=== PATIENT | male | born 1965 | race Caucasian/White ===

== ENCOUNTER 2022-11-16 16:47 | Emergency (ER) | payer MEDICARE ==
--- NOTE | 2022-11-16 18:33 | XRAY Report ---
PROCEDURE: Elbow 3 View LT INDICATIONS: glf TECHNIQUE: 3 views of the elbow were acquired. COMPARISON: None FINDINGS: Bones: No fractures or dislocations. No suspicious bony lesions. Soft tissues: No elbow joint effusion. No suspicious soft tissue calcifications. IMPRESSION: No acute elbow fracture or dislocation. No significant joint effusion. Reviewed by: Juan Maldonado MD on 11/16/2022 6:[address] [facility] Approved by: Juan Maldonado MD on 11/16/2022 6:[address] [facility] Station ID: [id number]
--- NOTE | 2022-11-16 19:35 | CT Report ---
PROCEDURE: LUMBAR SPINE WO INDICATIONS: glf TECHNIQUE: Noncontrast 3 mm thick sections acquired from the T12 level to the sacrum. Sagittal and coronal refo rmats were constructed. For radiation dose reduction, the following was used: automated exposure co ntrol, adjustment of mA and/or kV according to patient size. COMPARISON: None. FINDINGS: Image quality: Excellent. Bones: There is normal bony alignment. No acute vertebral body compression fractures. No suspiciou s lytic or blastic bony lesions. Central spinal caliber is of normal overall caliber. No pars defec ts. T12-L1: Normal in appearance. L1-L2: Degenerative endplate changes are seen. Broad-based disc bulge and bilateral facet arthrosi s is noted with mild central canal stenosis and mild left-sided neural foraminal narrowing. L2-L3: Degenerative endplate changes are seen. Diffuse disc bulge and bilateral facet arthrosis is seen with mild central canal stenosis and moderate left-sided neural foraminal narrowing. L3-L4: Loss of disc height and degenerative endplate changes are seen. Broad-based disc bulge and b ilateral facet arthrosis is seen with mild to moderate central canal stenosis and moderate to severe bilateral neural foraminal narrowing. L4-L5: Degenerative endplate changes and loss of disc height is seen. Diffuse disc bulge and bilate ral facet arthrosis is noted with mild central canal stenosis and moderate bilateral neural foraminal narrowing. L5-S1: Loss of disc height and vacuum disc phenomenon is seen. Broad-based disc bulge and bilateral facet arthrosis is seen with mild central canal stenosis and moderate to severe bilateral neural for aminal narrowing. Soft tissues: No retroperitoneal masses or hematomas. Visualized aorta is normal in caliber. IMPRESSION: 1. No acute lumbar spine fracture or dislocation. 2. Degenerative disc disease throughout lumbar spine as described above. Reviewed by: Juan Maldonado MD on 11/16/2022 7:34 PM PST Approved by: Juan Maldonado MD on 11/16/2022 7:34 PM PST Station ID: [id number]
[2022-11-16] MEDS ORDERED: KETOROLAC 60 MG/2 ML VIAL IM STA (20:04)
--- NOTE | 2022-11-16 20:06 | ED Physician Documentation ---
History of Present Illness - Stated complaint Stated Complaint: GLF, LANDED ON BACK & LT SIDE - Chief complaint Chief Complaint: Trauma Ch/Bk - Additonal information Additional information: 56-year-old male presents to the emergency department for evaluation of left elbow and low back pain after slipping on ice today. He reports that he landed on his left side. Since then he has had shooting pain down his right leg consistent with what he believes to be sciatica. Has had no saddle anesthesia or loss of bowel or bladder function though he did report some urinary and defecation urgency just after the fall. He is ambulatory though he appears uncomfortable. Review of Systems Constitutional: reports: Reviewed and negative Throat: reports: Reviewed and negative Cardiac: reports: Reviewed and negative Respiratory: reports: Reviewed and negative : reports: Reviewed and negative Musculoskeletal: reports: Back pain, Extremity pain PD PAST MEDICAL HISTORY - Allergies Allergies/Adverse Reactions: Allergies Allergy/AdvReac Type Severity Reaction Status Date / Time No Known Drug Allergies Allergy Verified 11/16/22 17:17 PD ED PE NORMAL - General General: Alert and oriented X 3, No acute distress, Well developed/nourished - HEENT HEENT: Atraumatic, Moist mucous membranes - Neck Neck: Supple, no meningeal sign - Cardiac Cardiac: RRR, No murmur - Respiratory Respiratory: No respiratory distress - Abdomen Abdomen: Normal bowel sounds, Soft - Rectal Rectal: Other (Normal rectal tone and wink) - Back Back: No CVA TTP, No spinal TTP (No tenderness elicited with palpation of the cervical thoracic or lumbar spinous processes. No step-off or crepitus.), Other (Normal gait. Positive straight leg exam right. Motor strength 5 of 5 bilateral lower extremities.) - Derm Derm: Normal color, Warm and dry, No rash, Other (No abrasion or ecchymosis on the chest abdomen or thorax) - Extremities Extremities: No deformity, Normal ROM s pain. No: No tenderness to palpate (Mil d tenderness just proximal to the left elbow with ecchymosis. Normal flexion extension at the elbow without tenderness elicited at the olecranon. Normal pronation and supination. Distal grasp normal) - Neuro Neuro: Alert and oriented X 3, pigment pumper 2-12 intact Eye Opening: Spontaneous Motor: Obeys Commands Verbal: Oriented GCS Score: 15 Results - Vitals Vitals: Vital Signs - 24 hr 12/22/22 17:12 Temperature 36.7 C Heart Rate 84 Respiratory 18 Rate Blood Pressure 147/90 H O2 Saturation 99 Oxygen O2 Source Room air - Rads (name of study) left elbow Radiology: Final report received (No fracture) lumbar CT Radiology: Final report received (No acute lumbar spine fracture or dislocation. Degenerative disc disease throughout the lumbar spine) PD Medical Decision Making - ED course Complexity details: reviewed results, re-evaluated patient, considered differential, d/w patient ED course: 56-year-old male presents emergency department for evaluation of acute left elbow pain as well as pain that radiates down his right leg after slipping and falling on ice. He felt that it could have been sciatica though he has never had it this severe. He had no saddle anesthesia though did report some urgency to defecate right after the fall. On exam he is ambulatory without assistance. No obvious ecchymosis or trauma on the body. He is moving his left elbow normally and an x-ray is unremarkable. I did perform a CT of his lumbar spine and no acute fractures are seen of the lumbar sacrum or coccyx. He does have a positive straight leg exam which I believe is consistent with sciatica. This patient wants to avoid narcotics which I believe is reasonable. He was administered Toradol here in the emergency department I will make the recommendation for Tylenol and ibuprofen [id number]. Urgent return precautions were discussed for failure symptoms to resolve. Departure - Departure Disposition: 01 Home, Self Care Clinical Impression: Ground-level fall Low back pain with sciatica Qualifiers: Chronicity: acute Back pain laterality: unspecified Sciatica laterality: sciatica of right side Qualified Code(s): M54.41 - Lumbago with sciatica, right side Condition: Stable Record reviewed to determine appropriate education?: Yes Instructions: ED Contusion Back Comments: Kevan you are seen today after a fall on the ice. The x-ray of your elbow shows no broken bones though you do have a contusion or bruising. I expect that this will simply get better with ice over the next few days. On exam you have a positive straight leg exam which is consistent with sciatica but the CT of your lumbar spine shows no fractures of the vertebrae sacrum or coccyx. There is no obvious hematoma or soft tissue bruise however the mechanism of the injury favors low back pain due to contusion. In order to help manage her pain over the next few days I recommend that you take either 500 or 650 mg of Tylenol 2-3 times a day. You can alternate with ibuprofen 600 mg 2-3 times a day. Over the next 48 to 72 hours expect you to be generally sore but after that time I would expect pain and movement to be getting consistently better. At any point you find that you have worsening symptoms, develop numbness in your genital area or lose control of your bowel or bladder function should return immediately to the ER for a second evaluation.
[2022-11-16 20:32] VITALS: BP 154/102
== END 2022-11-16 20:32 | disposition home or self-care (01) ==
LOC: ED 16:47
DX: S50.02XA Contusion of left elbow, initial encounter (principal); M54.41 Lumbago with sciatica, right side; W00.0XXA Fall on same level due to ice and snow, initial encounter
CPT/HCPCS: 96372; 99282; 99284

== ENCOUNTER 2022-12-01 15:07 | Emergency (ER) | payer MEDICARE ==
[2022-12-01 15:37] VITALS: BP 149/104
[2022-12-01] MEDS ORDERED: DEXAMETHASONE 10 MG/ML VIAL IM STA (16:13)
[2022-12-01] MEDS ORDERED: KETOROLAC 60 MG/2 ML VIAL IM STA (16:13)
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
== END 2022-12-01 16:27 | disposition home or self-care (01) ==
LOC: ED 15:07
DX: M54.41 Lumbago with sciatica, right side (principal)
CPT/HCPCS: 96372; 99283

== ENCOUNTER 2022-12-04 14:20 | Outpatient (CLI) | payer OTHER ==
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
== END 2022-12-04 14:21 | disposition home or self-care (01) ==
LOC: DI.S 14:20
PROVIDERS: ATTEND Chiropractor
DX: Z04.1 Encounter for examination and observation following transport accident (principal); M43.16 Spondylolisthesis, lumbar region; M47.816 Spondylosis without myelopathy or radiculopathy, lumbar region; M48.061 Spinal stenosis, lumbar region without neurogenic claudication; M48.02 Spinal stenosis, cervical region

== ENCOUNTER 2023-10-30 10:49 | Emergency (ER) | payer MEDICARE, MEDICAID ==
[2023-10-30 11:02] VITALS: BP 152/107; O2SAT 100
--- NOTE | 2023-10-30 11:24 | ED Physician Documentation ---
PD HPI UPPER EXT INJURY - Stated complaint Stated Complaint: RT LEG INJ - Chief complaint Chief Complaint: Trauma Ext - History obtained from History obtained from: Patient - History of Present Illness Location: Right, Other (lateral lower leg.) Type of injury: Laceration (from broken piece of picture framing glass that was broken. It fell from frame and cut lateral leg. No feeling of retained glass piece. He did cleanse briefly the area but bandaged quickly due to ongoing bleeding.) Worsened by: Palpating Associated symptoms: No: Weakness, Numbness Similar symptoms before: Has not had sx before Review of Systems Neurologic: denies: Focal weakness, Numbness PD PAST MEDICAL HISTORY - Past Medical History Past Medical History: No - Past Surgical History Past Surgical History: Yes - Present Medications Home Medications: Ambulatory Orders Medication Instructions Recorded Confirmed No Known Home Medications 10/30/23 10/30/23 - Allergies Allergies/Adverse Reactions: Allergies Allergy/AdvReac Type Severity Reaction Status Date / Time No Known Drug Allergies Allergy Verified 10/30/23 10:58 - Social History Does the pt smoke?: No Smoking Status: Never smoker Does the pt drink ETOH?: No Does the pt have substance abuse?: No - Immunizations Immunizations are current?: Yes - POLST Patient has POLST: No PD ED PE NORMAL - Vitals Vital signs reviewed: Yes - General General: Alert and oriented X 3, No acute distress, Well developed/nourished - Derm Derm: Normal color, Warm and dry - Extremities Extremities: Other (riht lateral lower leg with laceration curved down to fatty tissue mainly, with a 1 cm areas of it just to surface of peroneal muscle. No FB seen. ) - Neuro Neuro: No motor deficit, No sensory deficit Results - Vitals Vitals: Vital Signs - 24 hr 10/30/23 10:53 Temperature 36 C L Heart Rate 105 H Respiratory 16 Rate Blood Pressure 152/107 H O2 Saturation 100 Oxygen O2 Source Room air Procedures - Laceration (location) right lateral lower leg Length in cm: 7 Wound type: Curved, Into subcut fat, Clean Neurovascular status: Sensory intact, Motor intact, Vascular intact Anesthesia: Lidocaine 1% with epi Wound preparation: Wound explored, To the base Deep layer closure: Vicryl, size #-0 - enter number (5), # sutures - enter number (5) Skin layer closure: Nylon, Running, Size #-0 - enter number (4), Sutures - enter # (17) Other: Patient tolerated well, No complications, Neurovascular intact, Dressing applied, Tetanus UTD PD Medical Decision Making - ED course Complexity details: considered differential (laceration lateral right lower leg from piece of broken glass cutting side of leg. Spirting/continued bleeding until good direct pressure per pt. ), d/w patient ED course: I inspected the wound well and is to fatty tissue layer, with just a small 1 cm area that is just to peroneal muscle surface. Small arteriole spurting bleed when dressing removed. Normal sensation, motor, and color distally. I did not feel nor see any glass pieces. Departure - Departure Disposition: 01 Home, Self Care Clinical Impression: Laceration of right lower leg Condition: Stable Record reviewed to determine appropriate education?: Yes Instructions: ED Laceration All Comments: It is okay to wash and shower. Clean off the wound twice a day with soap and water, or peroxide and water. Apply some antibiotic ointment to it to keep it moist. Also to watch for signs of infection such as purulence, redness or increasing pain. Return to your primary care or the ER at the specified time for suture removal. Suture removal 8 to 10 days. Forms: PCP List Discharge Date/Time: 10/30/23 12:47
[2023-10-30] MEDS ORDERED: LIDOCAINE 1%-EPI 1:100000 20 ML MDV SUBQ STA (11:39)
== END 2023-10-30 12:47 | disposition home or self-care (01) ==
LOC: ED 10:49
DX: S81.811A Laceration without foreign body, right lower leg, initial encounter (principal); W25.XXXA Contact with sharp glass, initial encounter
CPT/HCPCS: 12002; 99282; 99283